=== PATIENT | male | born 1975 | race Caucasian/White ===

== ENCOUNTER 2023-07-06 23:41 | Emergency (ER) | payer OTHER ==
[2023-07-06 23:56] VITALS: BP 130/88; PULSE 69; RESP 16; TEMP 98.4; BMI 24.3
[2023-07-07] MEDS ORDERED: AMOX TR/POT CLAV 875MG/125MG TABLETS (FP) PO ONE (00:10)
[2023-07-07] MEDS ORDERED: AMOX TR/POT CLAV 875MG/125MG TABLETS (FP) ONE (00:11)
== END 2023-07-07 00:18 | disposition home or self-care (01) ==
LOC: FER 23:41
DX: H92.01 Otalgia, right ear (principal); R09.89 Other specified symptoms and signs involving the circulatory and respiratory systems; R50.9 Fever, unspecified; R07.0 Pain in throat; H66.001 Acute suppurative otitis media without spontaneous rupture of ear drum, right ear
CPT/HCPCS: 99283-25